=== PATIENT | male | born 1960 | race African-American/Black ===

== ENCOUNTER 2018-09-14 12:44 | Observation (INO) | payer OTHER ==
[2018-09-14] MEDS ORDERED: methylPREDNISolone NA SUCC 125 MG/2 ML VIAL IVPUSH ONE (13:14)
[2018-09-14] MEDS: ALBUTEROL SO4 2.5/IPRATROPIUM 0.5 INH SOL 3 ML VIAL.NEB. NEB SCH ×4 (13:15→14:00)
[2018-09-14 14:10] LABS: BASO % 0.4 % (0-2.0); EOS % 0.2 % (0-4.5); HEMATOCRIT 38.7 % (35.4-49); HEMOGLOBIN 12.2 GM/dL (11.7-16.9); LYMPH % 9.2 % (8-40); MCH 27.4 pg (25.7-33.7); MCHC 31.4 g/dl (32.0-35.9); MEAN PLT VOLUME 9.7 fl (7.5-11.1); MONO % 10.9 % (3.8-10.2); NEUT % 79.3 % (42.8-82.8); PLATELET COUNT 162 K/MM3 (134-434); RBC 4.45 M/mm3 (4.00-5.60); WHITE BLOOD COUNT 12.3 K/mm3 (4.0-10.0)
--- NOTE | 2018-09-14 14:14 | PDOC ---
History of Present Illness - General Chief Complaint: Shortness of Breath Stated Complaint: SOB COLD Time Seen by Provider: 09/14/18 13:02 History Source: Patient Exam Limitations: No Limitations - History of Present Illness Initial Comments: 09/14/18 13:50 Patient is a 58M with history of COPD, CHF, afib on digoxin, CKD, HLD here today complaining of weakness. He states that he's also had 1 week of cough, subjective fevers, chills, and shortness of breath. Patient is coming from an assisting living home, denies sick contacts. Endorses compliance with medications. Denies chest pain, leg swelling, prior blood clots, recent travel. States that he got his flu shot. Denies dysuria. He states that he developed epigastric abdominal pain after multiple episodes of coughing. Past History - Past Medical History Allergies/Adverse Reactions: Allergies Allergy/AdvReac Type Severity Reaction Status Date / Time No Known Allergies Allergy Verified 09/14/18 13:24 Cardiac Disorders: Yes (HF, Afib) CVA: Yes ("2yrs ago" (2016)) COPD: Yes HTN: Yes Hypercholesterolemia: Yes Psychiatric Problems: Yes (Depression) - Suicide/Smoking/Psychosocial Hx Smoking History: Former smoker Have you smoked in the past 12 months: No If you are a former smoker, when did you quit?: 2 years ago Information on smoking cessation initiated: No Hx Alcohol Use: No Drug/Substance Use Hx: No Substance Use Type: None Review of Systems - Review of Systems Comments:: 09/14/18 14:14 GENERAL/CONSTITUTIONAL: +fever +chills. +weakness. HEAD, EYES, EARS, NOSE AND THROAT: No change in vision. No sore throat. CARDIOVASCULAR: No chest pain +shortness of breath RESPIRATORY: +cough, +wheezing, no hemoptysis. GASTROINTESTINAL: No nausea, vomiting, diarrhea or constipation. GENITOURINARY: No dysuria, frequency, or change in urination. MUSCULOSKELETAL: No joint or muscle swelling or pain. No neck or back pain. SKIN: No rash NEUROLOGIC: No headache, vertigo, loss of consciousness, or change in strength/ sensation. ENDOCRINE: No increased thirst. No abnormal weight change HEMATOLOGIC/LYMPHATIC: No anemia, easy bleeding, or history of blood clots. ALLERGIC/IMMUNOLOGIC: No hives or skin allergy. *Physical Exam - Vital Signs Last Vital Signs Temp Pulse Resp BP Pulse Ox 98.5 F 80 18 145/98 98 09/14/18 13:13 09/14/18 13:13 09/14/18 13:13 09/14/18 13:13 09/14/18 13:13 - Physical Exam Comments: 09/14/18 14:16 GENERAL: Awake, alert, and fully oriented, in no acute distress HEAD: No signs of trauma, normocephalic, atraumatic EYES: PERRLA, EOMI, sclera anicteric, conjunctiva clear ENT: Auricles normal inspection, hearing grossly normal, nares patent, oropharynx clear without exudates. Moist mucosa NECK: Normal ROM, supple, no lymphadenopathy, JVD, or masses LUNGS: No distress, speaks full sentences, diffuse wheezing bilaterally HEART: Regular rate and rhythm, normal S1 and S2, no murmurs, rubs or gallops, peripheral pulses normal and equal bilaterally. ABDOMEN: Soft, nontender, normoactive bowel sounds. No guarding, no rebound. No masses EXTREMITIES: Normal inspection, Normal range of motion, no edema. No clubbing or cyanosis. NEUROLOGICAL: Cranial nerves II through XII grossly intact. Normal speech, no focal sensorimotor deficits SKIN: Warm, Dry, normal turgor, no rashes or lesions noted. ED Treatment Course - LABORATORY CBC & Chemistry Diagram: 09/14/18 14:00 09/14/18 13:12 - RADIOLOGY Radiology Studies Ordered: Category Date Time Status CHEST X-RAY PORTABLE* [RAD] Stat Radiology 09/14/18 13:13 Completed Medical Decision Making - Medical Decision Making 09/14/18 14:17 Patient is a 58M with history of COPD, CHF, HLD, CKD, afib on digoxin here today with weakness, URI symptoms. DDx includes, but is not limited to COPD exacerbation, pneumonia, CHF, digoxin level abnormalities, ACS, UTI. Will evaluate with cardiac labs, CXR, EKG, UA, dig level. CXR clear, no infiltrate or acute cardiopulmonary process. 09/14/18 14:46 EKG shows sinus rhythm with one PAC. LVH with LAFB pattern. QRS widened to 130. No st elevations/depressions. No significant t wave abnormalities. No prior EKGs available for comparison. 09/14/18 18:54 Laboratory Tests 09/14/18 09/14/18 09/14/18 13:12 14:00 15:09 WBC 12.3 H Hgb 12.2 Plt Count 162 VBG pH 7.40 POC VBG pCO2 58.7 H Mixed VBG HCO3 35.4 H Digoxin 0.71 L CBC shows small leukocytosis. VBG shows chronic respiratory issue. Digoxin 0.71 , slightly low. CTA shows no PE, shows moderate to severe COPD changes. Admitted to Dr Krystian Crook. *DC/Admit/Observation/Transfer Diagnosis at time of Disposition: COPD exacerbation - Discharge Dispostion Condition at time of disposition: Stable Decision to Admit order: Yes - Referrals - Patient Instructions - Post Discharge Activity
[2018-09-14 14:28] LABS: INR 1.08 (0.83-1.09); PROTHROMBIN TIME (PATIENT) 12.7 SEC (9.7-13.0)
[2018-09-14 14:55] LABS: ALBUMIN 3.6 g/dl (3.4-5.0); ALK PHOS 112 U/L (45-117); ANION GAP 5 MMOL/L (8-16); BILIRUBIN,TOTAL 1.1 mg/dL (0.2-1); BLOOD UREA NITROGEN 14 mg/dL (7-18); CALCIUM 9.2 mg/dL (8.5-10.1); CHLORIDE 95 mmol/L (98-107); CO2 38 mmol/L (21-32); CREATININE 1.1 mg/dL (0.55-1.3); GLUCOSE,RANDOM 104 mg/dL (74-106); MAGNESIUM 2.3 mg/dL (1.8-2.4); POTASSIUM 3.7 mmol/L (3.5-5.1); SGOT/AST 35 U/L (15-37); SGPT/ALT 28 U/L (13-61); SODIUM 138 mmol/L (136-145)
[2018-09-14] MEDS ORDERED: ALBUTEROL SO4 0.5 % INH SOLN 2.5 MG/0.5 ML VIAL.NEB. NEB ONE (15:05)
[2018-09-14] MEDS ORDERED: FAMOTIDINE 20 MG/50 ML IVPB 20 MG/50 ML MG IVPB ONE ×2 (15:15→16:22)
[2018-09-14] MEDS ORDERED: SODIUM CHLORIDE 1,000 ML IV STA (15:15)
[2018-09-14] MEDS ORDERED: ACETAMINOPHEN 1000 MG/100 ML VIAL (NON FORMULARY) IVPB ONE (15:15)
[2018-09-14 15:18] LABS: VENOUS PC02 58.7 mmHg (38-52); VENOUS PH 7.4 (7.32-7.42); VENOUS PO2 13.7 mmHg (28-48)
[2018-09-14] MEDS ORDERED: ACETAMINOPHEN INJECTION 100 ML IVPB ONE (16:22)
--- NOTE | 2018-09-14 17:53 | PDOC ---
Attending Attestation - Resident Resident Name: Mike Ellison - ED Attending Attestation I have performed the following: I have examined & evaluated the patient, The case was reviewed & discussed with the resident, I agree w/resident's findings & plan - HPI HPI: 09/14/18 17:53 Shaun Brian is a 58-year-old male from an assisted living facility, with a past medical history of COPD (3-4L of O2 at home, on steroids), CHF, afib (on digoxin ), CKA, HLD, and depression, who presents to the ED with generalized weakness today. The patient reports associated cough, shortness of breath, and epigastric /LUQ pain due to excessive coughing x 1 week. Patient is compliant with his medications. +dyspnea with mild exertion and walking small distances. The patient denies any nausea, vomiting, or diarrhea. Also on chronic steroids. Denies any chest pain or palpitations. Denies any recent travel or hx of DVTs. Allergies: NKA Social History: None reported. Surgical History: None reported. - Physicial Exam PE: 09/14/18 17:53 General: Well appearing, awake and alert, NAD. HEENT: NCAT, PERRL, EOMI, clear conjunctiva, anicteric, moist mucus membranes, clear oropharynx, no oral lesions.. Neck: neck supple, FROM Resp: (+)Decreased air entry, decreased breath sounds bilaterally, on supplemental O2. CVS: RRR, no murmurs, 2+ peripheral pulses throughout, no peripheral edema Abdomen: soft, NTND, no peritoneal signs. Back: nontender, normal inspection and ROM MSK: no edema, GARCIA x4, ROM intact. No clubbing or cyanosis. normal bulk and tone. No calf tenderness Neuro: alert, oriented appropriately; no focal neurologic deficits Skin: warm and well perfused, cap refill <2 sec, normal color - Medical Decision Making 09/14/18 17:52 Shaun Brian is a 58-year-old male from an assisted living facility, with a past medical history of COPD (3-4L of O2 at home, on steroids), CHF, afib (on digoxin ), CKA, HLD, and depression, who presents to the ED with generalized weakness, progressive AP, SOB with exertion x 1 week. DDx. digoxin toxicity, electrolyte/metabolic derangements, CHF, COPD, acute respiratory failure, ACS, arrhythmia, PE, pneumonia. Vital signs reviewed, wnl. Prior notes reviewed, including admissions, discharges and consultations. laboratory results and imaging reviewed, basic labs and lytes wnl, notable for leukocytosis 12.3K, however on steroids. Digoxin level therapeutic range. CO2 retention >58, but normal pH so likely chronic retainer. Dimer elevated, will need CTA to r/o PE as alternative etiology for sob. neg for PE, copd changes present. CXR_unremarkable, no intra thoracic disease Cardiac panel_neg trop/ck. EKG normal sinus rhythm, no interval abnormalities, narrow QRS, ST and T wave segments and morphology normal. Nonspecific T wave abnormalities, PAC with left axis deviation ED course: no acute events, remained stable and well appearing. Clinically improved after interventions, including duonebs, solumedrol and IVF/tylenol, pepcid for GI cocktail and epigastric pain Dispo: Admit for copd exacerbation. Discussed results and management plan with pt and family member at bedside, agree with impression and plan 09/14/18 17:52 09/20/18 19:16
--- NOTE | 2018-09-14 18:43 | HP ---
CHIEF COMPLAINT: SOB and cough PCP:[facility] HISTORY OF PRESENT ILLNESS: 58 year old male with hx of COPD and emphysema presented with one week history of common cold , nasal congestion and productive cough of yellow sputum , small cup in amount . pt felt weak today and not able to do his daily activity he used o2 at home with 2 -3 at rest and 4 l on walking. pt denies nay fe tracee, chills, N/V/D/C, denies nay chest pain , palpitation , headache , blurry vision. denies any urinary symptoms. or joint/back pain . ER course was notable for: (1)NS (2)CBC, CMP (3)Duo-neb , O2 , Prednisone , CTA , CXR Recent Travel:denies PAST MEDICAL HISTORY: Stroke in 2016 PAST SURGICAL HISTORY: Denies Social History: Smoking: Quit in 2016 ,previous 30 PPD Alcohol:socially Drugs: denies Family History: Allergies No Known Allergies Allergy (Verified 09/14/18 13:24) HOME MEDICATIONS: REVIEW OF SYSTEMS couph, SOB , Mid epigastric tenderness PHYSICAL EXAMINATION Vital Signs - 24 hr 09/14/18 09/14/18 12:55 13:13 Temperature 98.5 F Pulse Rate 80 Respiratory 18 Rate Blood Pressure 145/98 O2 Sat by Pulse 99 98 Oximetry (%) GENERAL: AAOx3 in NAD, on 3 L oxygen HEAD: NC/AT, poor dentation EYES: EOMI, Conjunctiva clear, sclera anicteric ENT: moist mucous membrane NECK: Supple, no JVD LUNGS: CTA B/L, no crackles no wheezing no accessory muscle use.(improved with treatment ) HEART: RRR, NSR, normal s1, s2, murmur no M/R/G ABDOMEN: Soft, ND, Mid epigastric tenderness, +BS 4 Q, no CVA Tenderness LOWER EXTREMITIES: no edema, +2DP pulse, NEUROLOGICAL: No focal deficit. Normal speech. gait not observed. PSYCHIATRIC: Cooperative. Good eye contact. Appropriate mood and affect. SKIN: Warm, dry, Laboratory Results - last 24 hr 09/14/18 09/14/18 09/14/18 13:12 14:00 14:00 WBC 12.3 H RBC 4.45 Hgb 12.2 Hct 38.7 MCV 87.0 MCH 27.4 MCHC 31.4 L RDW 15.0 Plt Count 162 MPV 9.7 Absolute Neuts (auto) 9.7 H Neutrophils % 79.3 Lymphocytes % 9.2 Monocytes % 10.9 H Eosinophils % 0.2 Basophils % 0.4 Nucleated RBC % 0 PT with INR 12.70 INR 1.08 D-Dimer VBG pH POC VBG pCO2 POC VBG pO2 Mixed VBG HCO3 Sodium 138 Potassium 3.7 Chloride 95 L Carbon Dioxide 38 H Anion Gap 5 L BUN 14 Creatinine 1.1 Creat Clearance w eGFR > 60 Random Glucose 104 Calcium 9.2 Magnesium 2.3 Total Bilirubin 1.1 H AST 35 ALT 28 Alkaline Phosphatase 112 Creatine Kinase 376 H Creatine Kinase Index 0.7 CK-MB (CK-2) 2.8 Troponin I 0.04 Total Protein 7.0 Albumin 3.6 Digoxin 0.71 L 09/14/18 09/14/18 15:05 15:09 WBC RBC Hgb Hct MCV MCH MCHC RDW Plt Count MPV Absolute Neuts (auto) Neutrophils % Lymphocytes % Monocytes % Eosinophils % Basophils % Nucleated RBC % PT with INR INR D-Dimer 1340 H VBG pH 7.40 POC VBG pCO2 58.7 H POC VBG pO2 13.7 L* Mixed VBG HCO3 35.4 H Sodium Potassium Chloride Carbon Dioxide Anion Gap BUN Creatinine Creat Clearance w eGFR Random Glucose Calcium Magnesium Total Bilirubin AST ALT Alkaline Phosphatase Creatine Kinase Creatine Kinase Index CK-MB (CK-2) Troponin I Total Protein Albumin Digoxin CBC, BMP 09/14/18 14:00 09/14/18 13:12 ASSESSMENT/PLAN: 58 year old male with hx of copd and emphysema presented from [facility] due to one week of common cold and worsening sob and productive cough , was admitted to obs services for copd exacerbation. # COPD exacerbation acute on chronic * worsening cough with white yellow phlegm , dyspnea on exertion * CXR with no acute pathology * CTA done in ED negative for PE * duoneb Q 6 hr * Albuterol Q 4 hr * Prednisone 60 mg po daily for 5 days * Azithromax 500 mg po X3 days * Cont o2 3 L * if improved in AM possible for DC # FEN * F: 1 L NS * E: Monitor * N: regular diet # Proph * DVTS: Hep SQ TID * GI: pepcid # Dispo: Admit to obs Note :Day team please verify his home meds Visit type - Emergency Visit Emergency Visit: Yes ED Registration Date: 09/14/18 Care time: The patient presented to the Emergency Department on the above date and was hospitalized for further evaluation of their emergent condition. - New Patient This patient is new to me today: Yes Date on this admission: 09/14/18 - Critical Care Critical Care patient: No
[2018-09-14] MEDS ORDERED: ALBUTEROL SO4 0.5 % INH SOLN 2.5 MG/0.5 ML VIAL.NEB. NEB PRN (20:02)
--- NOTE | 2018-09-14 20:31 | PN ---
Teaching Attending Note Name of Resident: Opla Mustafa ATTENDING PHYSICIAN STATEMENT I saw and evaluated the patient. I reviewed the resident's note and discussed the case with the resident. I agree with the resident's findings and plan as documented. SUBJECTIVE: Patient seen and examined; he has a stated PMH of CVA for which he was seen at [facility] with no residual deficits, COPD with profound history of former smoking follows with pulmonary medicine. No recent PFTs, no recent exacerbations. He has GOLD+ COPD exacerbation with SOB on exertion with less functional status for 1 day due to dyspnea; he has thicker sputum as well and a more frequent cough. On baseline ~3L and he is using that now via NC. He is symptomatically improved after tx in the ER. Doesn't smoke anymore due to concern after stroke. He is on PRN albuterol and Symbicort at home. Last recent to pulmonary was 2 weeks ago without any med changes. He initially complained of some epigastric pain that had since resolved. PMH: COPD, stated CVA PSH: No recent procedures, no cardiopulmonary procedures Social: Former smoker, no EtOH FH: Asked and noncontributory OBJECTIVE: VSS, labs reviewed NAD, AAO, resting in bed on 3L via NC RRR s1/2 no mgr Lungs CTAB with minimal if any wheezes, sym expansion, prolonged expiratory phase NT ND +BS EKG with NSR and L-axis deviation and occasional PAC ASSESSMENT AND PLAN: 1) COPD exacerbation -+by GOLD criteria; staging of COPD unknown. -On baseline O2; admit to obs, PO Pred burst x5 days, ATC duonebs, PRN albuterol -Azithro x5 days; being done due to LLL lung changes. I don't think that they represent a PNA in the abscence of a true WBC count (only mildly elevated) and no fever or systemic sx. Can broaden if a true PNA becomes evident. 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 2) Former history of CVA -Consider discharging on ASA for secondary prevention -No residual deficits 3) Former Smoker -Outpatient followup for AAA screening and lung cancer screening. FENA -PO fluids -Monitor and replete PRN -Regular Diet -As tolerated Full Code Anticipate DC in <24 hours
[2018-09-14] MEDS ORDERED: AZITHROMYCIN 250 MG TABLET ONE (22:50)
[2018-09-14] MEDS: AZITHROMYCIN 250 MG TABLET PO SCH (22:54)
[2018-09-14 22:55] LABS: PH,URINE 6.5 (5.0-8.0); URINE APPEARANCE Clear; URINE BILIRUBIN Negative (<2.0 mg/dL); URINE COLOR Yellow; URINE GLUCOSE (UA) Negative (NEGATIVE); URINE KETONE Negative (NEGATIVE); URINE LEUK ESTERASE Negative (NEGATIVE); URINE NITRITE Negative (NEGATIVE); URINE PROTEIN 1+ (NEGATIVE)
[2018-09-14 23:05] LABS: EPI CELLS RARE /HPF (FEW)
[2018-09-15] MEDS ORDERED: HEPARIN NA (PORCINE) 5,000 UNITS/ML 1ML VIAL ONE (06:08)
[2018-09-15] MEDS: HEPARIN NA (PORCINE) 5,000 UNITS/ML 1ML VIAL SQ SCH ×3 (06:37→22:54)
[2018-09-15 07:45] LABS: BASO % 0.1 % (0-2.0); HEMATOCRIT 39.3 % (35.4-49); HEMOGLOBIN 12.3 GM/dL (11.7-16.9); LYMPH % 3.9 % (8-40); MCH 27.2 pg (25.7-33.7); MCHC 31.4 g/dl (32.0-35.9); MEAN CELL VOLUME 86.6 fl (80-96); MEAN PLT VOLUME 9.6 fl (7.5-11.1); MONO % 4.9 % (3.8-10.2); NEUT % 91.1 % (42.8-82.8); PLATELET COUNT 175 K/MM3 (134-434); RBC 4.54 M/mm3 (4.00-5.60); RDW 14.9 % (11.9-15.9); WHITE BLOOD COUNT 11.9 K/mm3 (4.0-10.0)
[2018-09-15 08:13] LABS: ANION GAP 7 MMOL/L (8-16); BLOOD UREA NITROGEN 18 mg/dL (7-18); CHLORIDE 98 mmol/L (98-107); CO2 34 mmol/L (21-32); GLUCOSE,RANDOM 106 mg/dL (74-106); MAGNESIUM 2.4 mg/dL (1.8-2.4); PHOSPHOROUS 3.8 mg/dL (2.5-4.9); POTASSIUM 4.1 mmol/L (3.5-5.1); SODIUM 138 mmol/L (136-145)
[2018-09-15 10:09] LABS: ACANTHOCYTES 0; ANISOCYTOSIS 0; HELMET CELLS 0; HOWELL-JOLLY BODIES 0; MACROCYTOSIS 0; OVALOCYTE 0; PLATELET ESTIMATE NORMAL; ROULEAU 0; SICKELED CELLS 0; TARGET CELLS 0; TEAR DROP CELLS 0; TOXIC GRANULATION 0
[2018-09-15] MEDS: predniSONE 20 MG TABLET (UD) PO SCH (10:16)
[2018-09-15] MEDS: AZITHROMYCIN 250 MG TABLET PO SCH (10:16)
[2018-09-15] MEDS: ALBUTEROL SO4 2.5/IPRATROPIUM 0.5 INH SOL 3 ML VIAL.NEB. NEB PRN (11:00)
--- NOTE | 2018-09-15 11:27 | EKG ---
Test Reason : Blood Pressure : / mmHG Vent. Rate : 088 BPM Atrial Rate : 088 BPM P-R Int : 162 ms QRS Dur : 130 ms QT Int : 380 ms P-R-T Axes : 076 -62 091 degrees QTc Int : 459 ms SINUS RHYTHM WITH PREMATURE ATRIAL COMPLEXES LEFT AXIS DEVIATION LEFT VENTRICULAR HYPERTROPHY WITH QRS WIDENING AND REPOLARIZATION ABNORMALITY CANNOT RULE OUT SEPTAL INFARCT , AGE UNDETERMINED ABNORMAL ECG NO PREVIOUS ECGS AVAILABLE Confirmed by GISELLE MARTINI, LIZZIE ([id number]) on 09/15/2018 11:26:39 AM Referred By: Confirmed By:LIZZIE DESAI MD
--- NOTE | 2018-09-15 17:22 | PN ---
Teaching Attending Note Name of Resident: Eben Norton ATTENDING PHYSICIAN STATEMENT I saw and evaluated the patient. I reviewed the resident's note and discussed the case with the resident. I agree with the resident's findings and plan as documented. SUBJECTIVE:breathing is somewhat improved. states he has not ambulated and unable to discern if hes able to walk without difficulty. denies CP, SOB, fever , chills, N/V/C/D OBJECTIVE: Last Vital Signs Temp Pulse Resp BP Pulse Ox 98.2 F 103 H 18 123/79 97 09/15/18 15:00 09/15/18 15:00 09/15/18 15:00 09/15/18 15:00 09/15/18 10:10 General NAD CV S1 S2 + Lungs diffuse expiratory wheezing, good inspiratory effort abdomen soft NT/ND ASSESSMENT AND PLAN: 58yo M with PMH CVA with no deficits, CHF, afib, CKD, COPD on 3L home O2 presented to the Er wtih SOB x1 day assoc iwth productive cough and found to have acute COPD exacerbation 1. Acute COPD exacerbation. currently 97% on 2L NC. states he is better but does not feel at baseline yet. was given solumedrol 125mg in the ER and now currently on pred 60mg po. will cont current dosing. cont azithromycin day 2. will re-start home inhalers. cont nebs 2. CHF- no signs of overload. cont home medications 3. AFib on digoxin- unclear why he is not on anticoagulation. will need to verify. cont home medications 4. CVA- unclear not on antiplatelet agent 5. DVT ppx- hep sq 6. anticipate discharge in next 24H
[2018-09-15 18:14] VITALS: BMI 20.6
--- NOTE | 2018-09-15 20:42 | PN ---
Physical Exam: SUBJECTIVE: Patient seen and examined at bedside. No acute events overnight. Endorses nausea and abdominal discomfort this AM. States he felt dizzy as well this am. OBJECTIVE: Vital Signs Period Temp Pulse Resp BP Sys/Goode Pulse Ox Last 24 Hr 97.8 F-98.2 F 103-110 18-20 123-151/79-100 96-97 GENERAL: AAOx3, NAD HEAD: NC/AT EYES: PERRLA EOMI ENT: MMM NECK: No accessory muscle use. LUNGS: Right lung field expiratory wheezing HEART: Regular rate and rhythm, S1, S2 without murmur, rub or gallop. ABDOMEN: ND NT No HSM. EXTREMITIES: No CCE NEUROLOGICAL: Cranial nerves II through XII grossly intact. PSYCH: Normal mood, normal affect. SKIN: No rahses or lesions appreciated Laboratory Results - last 24 hr 09/14/18 09/14/18 09/14/18 12:43 21:28 22:00 WBC RBC Hgb Hct MCV MCH MCHC RDW Plt Count MPV Absolute Neuts (auto) Neutrophils % Neutrophils % (Manual) Band Neutrophils % Lymphocytes % Lymphocytes % (Manual) Monocytes % Monocytes % (Manual) Eosinophils % Eosinophils % (Manual) Basophils % Basophils % (Manual) Myelocytes % (Man) Promyelocytes % (Man) Blast Cells % (Manual) Nucleated RBC % Metamyelocytes Hypochromia Toxic Granulation Dohle Bodies Platelet Estimate Polychromasia Poikilocytosis Basophilic Stippling Anisocytosis Microcytosis Macrocytosis Spherocytes Sickle Cells Target Cells Tear Drop Cells Ovalocytes Stomatocytes Helmet Cells [place] Bodies [place] Rings Que Cells Acanthocytes (Spur) Rouleaux Fragmented RBCs Schistocytes Sodium Potassium Chloride Carbon Dioxide Anion Gap BUN Creatinine Creat Clearance w eGFR Random Glucose Calcium Phosphorus Magnesium Creatine Kinase 345 H Creatine Kinase Index 0.8 CK-MB (CK-2) 3.0 Lipase 57 L Urine Color Yellow Urine Appearance Clear Urine pH 6.5 Ur Specific [place] <= 1.005 L Urine Protein 1+ H Urine Glucose (UA) Negative Urine Ketones Negative Urine Blood 1+ H Urine Nitrite Negative Urine Bilirubin Negative Urine Urobilinogen 1.0 Ur Leukocyte Esterase Negative Urine WBC (Auto) 1 Urine RBC (Auto) 1 Ur Epithelial Cells Rare 09/15/18 09/15/18 07:00 07:00 WBC 11.9 H RBC 4.54 Hgb 12.3 Hct 39.3 MCV 86.6 MCH 27.2 MCHC 31.4 L RDW 14.9 Plt Count 175 MPV 9.6 Absolute Neuts (auto) 10.9 H Neutrophils % 91.1 H Neutrophils % (Manual) 86.9 H Band Neutrophils % 1.0 Lymphocytes % 3.9 L D Lymphocytes % (Manual) 6.0 L Monocytes % 4.9 Monocytes % (Manual) 6 Eosinophils % 0.0 D Eosinophils % (Manual) 0.0 Basophils % 0.1 Basophils % (Manual) 0.0 Myelocytes % (Man) 0 Promyelocytes % (Man) 0 Blast Cells % (Manual) 0 Nucleated RBC % 0 Metamyelocytes 0 Hypochromia 0 Toxic Granulation 0 Dohle Bodies 0 Platelet Estimate Normal Polychromasia 0 Poikilocytosis 0 Basophilic Stippling 0 Anisocytosis 0 Microcytosis 0 Macrocytosis 0 Spherocytes 0 Sickle Cells 0 Target Cells 0 Tear Drop Cells 0 Ovalocytes 0 Stomatocytes 0 Helmet Cells 0 [place] Bodies 0 [place] Rings 0 [place] Cells 0 Acanthocytes (Spur) 0 Rouleaux 0 Fragmented RBCs 0 Schistocytes 0 Sodium 138 Potassium 4.1 Chloride 98 Carbon Dioxide 34 H Anion Gap 7 L BUN 18 Creatinine 1.0 Creat Clearance w eGFR > 60 Random Glucose 106 Calcium 9.0 Phosphorus 3.8 Magnesium 2.4 Creatine Kinase Creatine Kinase Index CK-MB (CK-2) Lipase Urine Color Urine Appearance Urine pH Ur Specific [place] Urine Protein Urine Glucose (UA) Urine Ketones Urine Blood Urine Nitrite Urine Bilirubin Urine Urobilinogen Ur Leukocyte Esterase Urine WBC (Auto) Urine RBC (Auto) Ur Epithelial Cells Active Medications Generic Name Dose Route Start Last Admin Trade Name Freq PRN Reason Stop Dose Admin Albuterol Sulfate 1 amp 09/14/18 20:02 Ventolin 0.5% - NEB Q4H PRN SHORT OF BREATH/WHEEZING Albuterol/Ipratropium 1 amp 09/14/18 20:00 09/15/18 11:00 Duoneb - NEB 1 amp Q6H PRN Administration SHORTNESS OF BREATH Azithromycin 500 mg 09/14/18 20:15 09/15/18 10:16 Zithromax - PO 09/17/18 20:14 500 mg DAILY WAQAR Administration Budesonide/Formoterol Fumarate 2 puff 09/15/18 22:00 Symbicort 160/4.5mcg - IH BID WAQAR Heparin Sodium (Porcine) 5,000 unit 09/15/18 06:00 09/15/18 14:45 Heparin - SQ 5,000 unit TID WAQAR Administration Prednisone 60 mg 09/15/18 10:00 09/15/18 10:16 Deltasone - PO 60 mg DAILY WAQAR Administration ASSESSMENT/PLAN: 58 year old male with hx of COPD, CHF, AFIB (on digoxin), HLD, depression and emphysema presented from [facility] due to one week of common cold and worsening sob and productive cough. # COPD exacerbation acute on chronic * worsening cough with white yellow phlegm, dyspnea on exertion * CXR with no acute pathology * CTA done in ED negative for PE * Duoneb Q 6 hr * Albuterol Q 4 hr * Prednisone 60 mg po daily for 5 days. Was given solumedrol 125mg in the ER. * Azithromax 500 mg po X3 days. On day 2. * 2L NC O2 #CHF Resume home medications. will reconcile in am #AFIB Resume Home medications will reconcile in am # FEN No Fluids Monitor Electrolytes Regular Diet #DVT ppx Hep SQ TID # Dispo: Discharge in am Visit type - Emergency Visit Emergency Visit: Yes ED Registration Date: 09/14/18 Care time: The patient presented to the Emergency Department on the above date and was hospitalized for further evaluation of their emergent condition. - New Patient This patient is new to me today: Yes Date on this admission: 09/15/18 - Critical Care Critical Care patient: No - Discharge Referral Referred to [facility] No
[2018-09-15] MEDS: BUDESONIDE/FORMETEROL FUMARATE 160/4.5 mcg INHALER IH SCH (22:53)
[2018-09-16] MEDS: HEPARIN NA (PORCINE) 5,000 UNITS/ML 1ML VIAL SQ SCH (06:22)
[2018-09-16] MEDS: ALBUTEROL SO4 2.5/IPRATROPIUM 0.5 INH SOL 3 ML VIAL.NEB. NEB PRN ×2 (06:57→15:16)
[2018-09-16] MEDS ORDERED: ACETAMINOPHEN 325 MG TABLET (FP) PO PRN (07:00)
[2018-09-16] MEDS ORDERED: ALBUTEROL SO4 8 GM HFA INHALER IH PRN (07:00)
[2018-09-16] MEDS ORDERED: OXYMETAZOLINE 0.05% NASAL SOLUTION 15 ML BOTTLE NS PRN (07:00)
[2018-09-16 07:01] LABS: HEMOGLOBIN 11.5 GM/dL (11.7-16.9); MCHC 30.9 g/dl (32.0-35.9); MEAN CELL VOLUME 87.4 fl (80-96); MEAN PLT VOLUME 9.7 fl (7.5-11.1); PLATELET COUNT 164 K/MM3 (134-434); RBC 4.24 M/mm3 (4.00-5.60); RDW 14.8 % (11.9-15.9); WHITE BLOOD COUNT 11.5 K/mm3 (4.0-10.0)
[2018-09-16 07:20] LABS: ANION GAP 7 MMOL/L (8-16); BLOOD UREA NITROGEN 22 mg/dL (7-18); CALCIUM 8.6 mg/dL (8.5-10.1); CHLORIDE 99 mmol/L (98-107); CO2 36 mmol/L (21-32); CREATININE 0.9 mg/dL (0.55-1.3); GLUCOSE,RANDOM 91 mg/dL (74-106); POTASSIUM 4.5 mmol/L (3.5-5.1); SODIUM 142 mmol/L (136-145)
--- NOTE | 2018-09-16 10:28 | PN ---
Physical Exam: SUBJECTIVE: Patient seen and examined at bedside. States he is feeling short of breath and having decreased energy. Received nebulizer treatment this am. OBJECTIVE: Vital Signs Period Temp Pulse Resp BP Sys/Goode Pulse Ox Last 24 Hr 97.5 F-98.2 F 78-110 18-20 123-151/79-105 96-97 GENERAL: NAD AAOx3 HEAD: Normal with no signs of trauma. EYES: PERRLA EOMI ENT: MMM. NECK: Trachea midline, full range of motion, supple. LUNGS: Expiratory wheezing HEART: RRR No MRG S1S2 ABDOMEN: ND NT No HSM EXTREMITIES: No CCE. NEUROLOGICAL: CN2-12 intact PSYCH: Normal mood, normal affect. SKIN: No rashes or lesions appreciated Laboratory Results - last 24 hr 09/15/18 09/16/18 09/16/18 07:00 06:25 06:25 WBC 11.5 H RBC 4.24 Hgb 11.5 L Hct 37.0 MCV 87.4 MCH 27.0 MCHC 30.9 L RDW 14.8 Plt Count 164 MPV 9.7 Neutrophils % (Manual) 86.9 H Band Neutrophils % 1.0 Lymphocytes % (Manual) 6.0 L Monocytes % (Manual) 6 Eosinophils % (Manual) 0.0 Basophils % (Manual) 0.0 Myelocytes % (Man) 0 Promyelocytes % (Man) 0 Blast Cells % (Manual) 0 Metamyelocytes 0 Hypochromia 0 Toxic Granulation 0 Dohle Bodies 0 Platelet Estimate Normal Polychromasia 0 Poikilocytosis 0 Basophilic Stippling 0 Anisocytosis 0 Microcytosis 0 Macrocytosis 0 Spherocytes 0 Sickle Cells 0 Target Cells 0 Tear Drop Cells 0 Ovalocytes 0 Stomatocytes 0 Helmet Cells 0 [place] Bodies 0 [place] Rings 0 [place] Cells 0 Acanthocytes (Spur) 0 Rouleaux 0 Fragmented RBCs 0 Schistocytes 0 Sodium 142 Potassium 4.5 Chloride 99 Carbon Dioxide 36 H Anion Gap 7 L BUN 22 H Creatinine 0.9 Creat Clearance w eGFR > 60 Random Glucose 91 Calcium 8.6 Active Medications Generic Name Dose Route Start Last Admin Trade Name Freq PRN Reason Stop Dose Admin Acetaminophen 650 mg 09/16/18 07:00 Tylenol - PO Q6H PRN PAIN Albuterol Sulfate 1 amp 09/14/18 20:02 Ventolin 0.5% - NEB Q4H PRN SHORT OF BREATH/WHEEZING Albuterol Sulfate 2 puff 09/16/18 07:00 Ventolin Hfa Inhaler - IH Q4H PRN SHORTNESS OF BREATH Albuterol/Ipratropium 1 amp 09/16/18 07:00 Duoneb - NEB QID PRN SHORTNESS OF BREATH Atorvastatin Calcium 20 mg 09/16/18 22:00 Lipitor - PO HS [facility] Azithromycin 500 mg 09/14/18 20:15 09/15/18 10:16 Zithromax - PO 09/17/18 20:14 500 mg DAILY [facility] Administration Budesonide/Formoterol Fumarate 2 puff 09/15/18 22:00 09/15/18 22:53 Symbicort 160/4.5mcg - IH Not Given BID [facility] Cyanocobalamin 1,000 mcg 09/16/18 10:30 Vitamin B12 Injection - IM MONTHLY [facility] Diltiazem HCl 120 mg 09/16/18 10:30 Cardizem - PO DAILY [facility] Fludrocortisone Acetate 0.1 mg 09/16/18 10:30 Florinef - PO DAILY [facility] Furosemide mg 09/16/18 10:30 Lasix - PO DAILY [facility] Heparin Sodium (Porcine) 5,000 unit 09/15/18 06:00 09/16/18 06:22 Heparin - SQ 5,000 unit TID [facility] Administration Loratadine 10 mg 09/16/18 10:00 Claritin - PO DAILY [facility] Non-Formulary Medication 100 mg 09/16/18 14:00 Benzonatate PO TID [facility] Non-Formulary Medication 62.5 mcg 09/16/18 10:30 Digoxin [Lanoxin] PO DAILY [facility] Non-Formulary Medication 325 mg 09/16/18 10:30 Ferrous Sulfate [Ferrous Sulfate] PO DAILY [facility] Non-Formulary Medication 7.5 mg 09/16/18 22:00 Mirtazapine [Mirtazapine] PO HS [facility] Oxymetazoline HCl 2 spray 09/16/18 07:00 Afrin - NS BID PRN [facility] [employer] Pantoprazole Sodium 20 mg 09/16/18 10:00 Protonix - PO DAILY [facility] Prednisone 60 mg 09/15/18 10:00 09/15/18 10:16 Deltasone - PO 60 mg DAILY [facility] Administration ASSESSMENT/PLAN: 58 year old male with hx of COPD, CHF, AFIB (on digoxin), HLD, depression and emphysema presented from [facility] due to one week of common cold and worsening sob and productive cough. # COPD exacerbation acute on chronic * CXR with no acute pathology * CTA done in ED negative for PE * Duoneb Q 6 hr * Albuterol Q 4 hr * Prednisone 60 mg po daily for 5 days. Was given solumedrol 125mg in the ER. * Azithromax 500 mg po X3 days. On day 3. * 2L NC O2 #CHF -Resume Furosemide 20 mg po daily #AFIB -Continue on home Digoxin 62.5 mcg. -Pt currently no on any AC. CHADS2 score--> 4. Should be on AC. Endorses he was hospitalized at [facility] in past and was noted to have hemoptysis and this is why his AC was stopped. Consider restarting an AC agent. -Called [facility]. Pt was hospitalized at [facility] in February of this year for pneumonia. During admission, pt began to experience dark/tarry stool and a stool occult was positive at that time. Hemoglobin dropped from 9.1 on admission to 6.9. Pt was also coughing up blood. Pt's Xarelto was thus discontinued. However, in light of pt's stable h/H currently and risk factors including afib, chf, and previous history of stroke, we will restart pt on Xarelto 20 mg po daily. #CVA November 2016 - Lipitor 20 mg HS - Cardizem 120 mg po daily-Extended release # FEN No Fluids Monitor Electrolytes Regular Diet #DVT ppx Xarelto PO 20mg Daily # Dispo: possible discharge today Visit type - Emergency Visit Emergency Visit: Yes ED Registration Date: 09/14/18 Care time: The patient presented to the Emergency Department on the above date and was hospitalized for further evaluation of their emergent condition. - New Patient This patient is new to me today: No - Critical Care Critical Care patient: No - Discharge Referral Referred to [facility]C.: No
[2018-09-16] MEDS ORDERED: CYANOCOBALAMIN (VITAMIN B-12) 1000 MCG/1 ML VIAL IM SCH (10:30)
[2018-09-16] MEDS ORDERED: dilTIAZem HCL 60 MG TABLET (FP) PO SCH (10:30)
[2018-09-16] MEDS: AZITHROMYCIN 250 MG TABLET PO SCH (10:33)
[2018-09-16] MEDS: PANTOPRAZOLE 20 MG TABLET (FP) PO SCH (10:33)
[2018-09-16] MEDS: predniSONE 20 MG TABLET (UD) PO SCH (10:33)
[2018-09-16] MEDS: LORATADINE 10 MG TABLET PO SCH (10:33)
[2018-09-16] MEDS: BUDESONIDE/FORMETEROL FUMARATE 160/4.5 mcg INHALER IH SCH ×2 (10:45→21:00)
[2018-09-16] MEDS: DIGOXIN 0.125 MG TABLET (FP) PO SCH (11:50)
[2018-09-16] MEDS: FUROSEMIDE 20 MG TABLET (FP) PO SCH (11:51)
[2018-09-16] MEDS: FERROUS SO4 325 MG TABLET (FP) PO SCH (11:51)
[2018-09-16] MEDS: FLUDROCORTISONE ACETATE 0.1 MG TABLET (FP) PO SCH (12:01)
[2018-09-16] MEDS: guaiFENesin/D-M SUGAR-FREE/ACLHOL-FREE 118 ML BOTTLE PO PRN (12:01)
--- NOTE | 2018-09-16 12:06 | PN ---
Teaching Attending Note Name of Resident: Eben Norton ATTENDING PHYSICIAN STATEMENT I saw and evaluated the patient. I reviewed the resident's note and discussed the case with the resident. I agree with the resident's findings and plan as documented. SUBJECTIVE:continues to have cough with minimal white sputum. no hemoptysis or melena. breathing is stable. denies CP, SOB, fever, chills, N/V/C/D OBJECTIVE: Last Vital Signs Temp Pulse Resp BP Pulse Ox 97.5 F L 96 H 18 140/84 97 09/16/18 02:00 09/16/18 11:50 09/16/18 06:00 09/16/18 02:00 09/16/18 06:00 General NAD Lungs mild expiratory wheezing, good inspiratory effort ASSESSMENT AND PLAN: 58yo M with PMH CVA with no deficits, CHF, afib, CKD, COPD on 3L home O2 presented to the Er wtih SOB x1 day assoc iwth productive cough and found to have acute COPD exacerbation 1. Acute COPD exacerbation- currently 97% on 2L NC. breathing appears to be improved. ambulating without difficulty. will cont prednisone 60mg daily with decrease by 10mg every 2 days. cont nebs and inhalers. will need to f/u with private retirement plan counselor at the [facility] as outpatient 2. CHF- no signs of overload. cont home medications 3. AFib on digoxin- obtained records from February 2018 when he was hospitalized for melena and hemoptysis. was on Xarleto. which was held. EGD was done which was negative for Gi source of bleeding. pt stated he was supposed to re-started on medications but never did. Hgb is stable here and no longer having bleeding. will re-start xarelto due to high FEZDH2Cmic of 4. and strongly encouraged to follow up with green marketing specialist or PMD by Thursday the latest. should be on PPI while on steroids and NOAC 4. CVA- asa was also held during recent hospital stay. would cont to hold this time and f/u with PMD about re-starting 5. DVT ppx- hep sq 6. d/c home
[2018-09-16] MEDS ORDERED: PATIENT'S OWN MEDICATION (NON-FORMULARY) (Benzonatate 100 MG) PO SCH (14:00)
[2018-09-16] MEDS ORDERED: methylPREDNISolone NA SUCC 40 MG/1 ML VIAL IVPUSH ONE (16:49)
[2018-09-16] MEDS ORDERED: RIVAROXABAN 20 MG TABLET PO SCH (18:00)
[2018-09-16] MEDS ORDERED: ATORVASTATIN CA 20 MG TABLET (FP) PO SCH (22:00)
[2018-09-16] MEDS ORDERED: MIRTAZAPINE 15 MG TABLET (FP) PO SCH (22:00)
[2018-09-16] MEDS ORDERED: PT OWN MED DRAWER 7, Y5N ONE (22:23)
[2018-09-17] MEDS ORDERED: PT OWN MED DRAWER 7, Y5N ONE (06:47)
[2018-09-17] MEDS: guaiFENesin/D-M SUGAR-FREE/ACLHOL-FREE 118 ML BOTTLE PO PRN (06:48)
[2018-09-17] MEDS: ALBUTEROL SO4 2.5/IPRATROPIUM 0.5 INH SOL 3 ML VIAL.NEB. NEB PRN ×2 (08:51→15:14)
[2018-09-17] MEDS: FERROUS SO4 325 MG TABLET (FP) PO SCH (10:02)
[2018-09-17] MEDS: predniSONE 20 MG TABLET (UD) PO SCH (10:02)
[2018-09-17] MEDS: DIGOXIN 0.125 MG TABLET (FP) PO SCH (10:02)
[2018-09-17] MEDS: PANTOPRAZOLE 20 MG TABLET (FP) PO SCH (10:03)
[2018-09-17] MEDS: LORATADINE 10 MG TABLET PO SCH (10:03)
[2018-09-17] MEDS: FUROSEMIDE 20 MG TABLET (FP) PO SCH (10:03)
[2018-09-17] MEDS: FLUDROCORTISONE ACETATE 0.1 MG TABLET (FP) PO SCH (10:04)
[2018-09-17] MEDS: AZITHROMYCIN 250 MG TABLET PO SCH (10:04)
[2018-09-17] MEDS: BUDESONIDE/FORMETEROL FUMARATE 160/4.5 mcg INHALER IH SCH (10:05)
[2018-09-17 10:06] VITALS: PULSE 88
--- NOTE | 2018-09-17 14:51 | DS ---
Physical Exam: SUBJECTIVE: Patient seen and examined OBJECTIVE: Vital Signs Period Temp Pulse Resp BP Sys/Goode Pulse Ox Last 24 Hr 97.9 F-98.3 F 71-108 19-20 127-141/78-91 96-99 PHYSICAL EXAM GENERAL: The patient is awake, alert, and fully oriented, in no acute distress. HEAD: Normal with no signs of trauma. EYES: PERRL, extraocular movements intact, sclera anicteric, conjunctiva clear. ENT: Ears normal, nares patent, oropharynx clear without exudates, moist mucous membranes. NECK: Trachea midline, full range of motion, supple. LUNGS: Breath sounds equal, clear to auscultation bilaterally, no wheezes, no crackles, no accessory muscle use. HEART: Regular rate and rhythm, S1, S2 without murmur, rub or gallop. ABDOMEN: Soft, nontender, nondistended, normoactive bowel sounds, no guarding, no rebound, no hepatosplenomegaly, no masses. EXTREMITIES: 2+ pulses, warm, well-perfused, no edema. NEUROLOGICAL: Cranial nerves II through XII grossly intact. Normal speech, gait not observed. PSYCH: Normal mood, normal affect. SKIN: Warm, dry, normal turgor, no rashes or lesions noted. LABS HOSPITAL COURSE: Date of Admission:09/14/18 Date of Discharge: 09/17/18 Discharge Summary Reason For Visit: COPD Current Active Problems COPD exacerbation (Acute) Condition: Improved - Instructions Diet, Activity, Other Instructions: You were admitted to the hospital for COPD exacerbation likely brought upon by the cold virus you experienced earlier this week. You were given a course of steroids in the hospital, which we would like you to continue at home. #Medical Recommendations -Please take the medication Prednisone 60mg for another 3 days starting tomorrow (we will give you 20mg tablets, take 3 of these once a day for 3 days). -We will prescribe you a Z-pack, an antibiotic that you should take for 5 days -Please continue to use your oxygen as directed before -Please continue the rest of your inhalers as directed by your primary care physician If you experience severe shortness of breath, fevers, chills, nausea, vomiting , diarrhea or chest pain, please return to the hospital immediately. Disposition: HOME - Home Medications Comprehensive Discharge Medication List: Ambulatory Orders Acetaminophen 650 mg PO Q6H PRN 09/15/18 Albuterol 2.5/Ipratropium 0.5 [Duoneb -] 1 amp NEB QID PRN 09/15/18 Albuterol Sulfate Inhaler - [Ventolin HFA Inhaler -] 2 inh IH Q4H PRN 09/15/18 Azithromycin 500 mg PO DAILY #5 tablet 09/15/18 Benzonatate [Tessalon Pearls -] 100 mg PO TID 09/15/18 Budesonide/Formeterol Fumarate [SYMBICORT 160/4.5mcg -] 2 puff IH BID 09/15/18 Cyanocobalamin Vit B-12 Inj. [Vitamin B12 Injection -] 1,000 mcg IM MONTHLY Digoxin [Lanoxin] 62.5 mcg PO DAILY 09/15/18 Diltiazem [Cardizem -] 120 mg PO DAILY 09/15/18 Ferrous Sulfate 325 mg PO DAILY 09/15/18 Fludrocortisone Acetate 0.1 mg PO DAILY 09/15/18 Furosemide 1 tab PO DAILY 09/15/18 Loratadine [Claritin] 1 tab PO DAILY 09/15/18 Mirtazapine 7.5 mg PO HS 09/15/18 Omeprazole 20 mg PO DAILY 09/15/18 Oxymetazoline 0.05% Nasal Soln [Afrin -] 2 spray NS BID PRN 09/15/18 Prednisone [Deltasone] 60 mg PO DAILY #9 tablet 09/15/18 Simvastatin [Zocor -] 40 mg PO HS 09/15/18 Tramadol HCl [Ultram] 25 mg PO QID PRN 09/15/18 Rivaroxaban [Xarelto -] 20 mg PO DAILY@1800 #30 tablet 09/17/18 - Discharge Referral Referred to [facility] No
[2018-09-17 15:10] VITALS: BP 145/96; TEMP 98
--- NOTE | 2018-09-17 17:48 | PN ---
Teaching Attending Note Name of Resident: Eben Norton ATTENDING PHYSICIAN STATEMENT I saw and evaluated the patient. I reviewed the resident's note and discussed the case with the resident. I agree with the resident's findings and plan as documented. SUBJECTIVE: he states that he has improved significantly and is ready to be DCed home on his home dose of O2 OBJECTIVE: in no distress, talks in full sentences, no use of accessory muscles 4 hours after last treatment. CVS:S1S2 GooD air movement, mild end expiratory wheezing. ON 2l NS Abd; BS+ NT/ND Last Vital Signs Temp Pulse Resp BP Pulse Ox 98 F 88 20 145/96 97 09/17/18 10:00 09/17/18 10:02 09/17/18 10:00 09/17/18 10:00 09/17/18 10:00 CBCD WBC 11.5 K/mm3 (4.0-10.0) H 09/16/18 06:25 RBC 4.24 M/mm3 (4.00-5.60) 09/16/18 06:25 Hgb 11.5 GM/dL (11.7-16.9) L 09/16/18 06:25 Hct 37.0 % (35.4-49) 09/16/18 06:25 MCV 87.4 fl (80-96) 09/16/18 06:25 MCHC 30.9 g/dl (32.0-35.9) L 09/16/18 06:25 RDW 14.8 % (11.9-15.9) 09/16/18 06:25 Plt Count 164 K/MM3 (134-434) 09/16/18 06:25 MPV 9.7 fl (7.5-11.1) 09/16/18 06:25 ASSESSMENT AND PLAN: COPD exacerbation: close to his baseline and resdy t be DCed home on 2 more days of prednisone and F/U with his prosthetic aides teacher rest of the management per HS note
== END 2018-09-17 16:19 | disposition home or self-care (01) ==
LOC: JER 12:44 → INTOOBSV 18:55 → JERBED 18:55 → J6S 09-15 17:58
PROVIDERS: ADMIT Internal Medicine; ATTEND Internal Medicine
PROC: 3E033NZ Introduction of Analgesics, Hypnotics, Sedatives into Peripheral Vein, Percutaneous Approach (ICD-10-PCS; principal; 2018-09-14)
PROC: 3E0337Z Introduction of Electrolytic and Water Balance Substance into Peripheral Vein, Percutaneous Approach (ICD-10-PCS; 2018-09-14)
PROC: 3E033GC Introduction of Other Therapeutic Substance into Peripheral Vein, Percutaneous Approach (ICD-10-PCS; 2018-09-14)
PROC: 3E013GC Introduction of Other Therapeutic Substance into Subcutaneous Tissue, Percutaneous Approach (ICD-10-PCS; 2018-09-14)
PROC: 3E0F7GC Introduction of Other Therapeutic Substance into Respiratory Tract, Via Natural or Artificial Opening (ICD-10-PCS; 2018-09-14)
DX: J44.1 Chronic obstructive pulmonary disease with (acute) exacerbation (principal); I12.9 Hypertensive chronic kidney disease with stage 1 through stage 4 chronic kidney disease, or unspecified chronic kidney disease; N18.9 Chronic kidney disease, unspecified; I11.0 Hypertensive heart disease with heart failure; I50.9 Heart failure, unspecified; E78.5 Hyperlipidemia, unspecified; I48.91 Unspecified atrial fibrillation; Z86.73 Personal history of transient ischemic attack (TIA), and cerebral infarction without residual deficits; Z99.81 Dependence on supplemental oxygen; Z87.891 Personal history of nicotine dependence; Z79.01 Long term (current) use of anticoagulants
CPT/HCPCS: 36415; 71045-TC-FY; 71275-TC; 80048; 80053; 80162; 81003; 81015; 82550; 82553; 82803; 83690; 83735; 84100; 84484; 85025; 85027; 85379; 85610; 87086; 87804; 93005; 93010; 94640; 96361; 96365; 96372; 96375; 99283-25; G0378; J0131; J1644; J7030

== ENCOUNTER 2021-04-17 12:58 | Inpatient (IN) | payer OTHER ==
[~2021-04-17 12:58] MED LIST: VANCOMYCIN 1 GRAM (PRE-DOCKED) 1,000 MG/250 ML BAG IVPB ONE
[2021-04-17 13:34] LABS: BASO % 1.6 % (0-2.0); EOS % 1.1 % (0-4.5); HEMATOCRIT 36.6 % (35.4-49); HEMOGLOBIN 11.4 GM/dL (11.7-16.9); LYMPH % 16.1 % (8-40); MCH 28.6 pg (25.7-33.7); MEAN CELL VOLUME 92.3 fl (80-96); MEAN PLT VOLUME 9.7 fl (7.5-11.1); MONO % 8.5 % (3.8-10.2); NEUT % 72.7 % (42.8-82.8); PLATELET COUNT 125 K/MM3 (134-434); RBC 3.97 M/mm3 (4.00-5.60); RDW 13.5 % (11.9-15.9); WHITE BLOOD COUNT 4.7 K/mm3 (4.0-10.0)
[2021-04-17 13:42] LABS: VENOUS BASE EXCESS 18.4 mmol/L (-2-2); VENOUS PH 7.207 (7.310-7.410)
[2021-04-17] MEDS ORDERED: ALBUTEROL SO4 2.5/IPRATROPIUM 0.5 INH SOL 3 ML VIAL.NEB. NEB ONE ×2 (13:42→16:15)
[2021-04-17] MEDS ORDERED: MAGNESIUM 1GM/D5W - 1 GM/100 ML IVPB IVPB ONE (13:42)
[2021-04-17 13:43] LABS: INR 0.92 (0.83-1.09); PROTHROMBIN TIME (PATIENT) 11.3 SEC (9.7-13.0)
[2021-04-17 13:45] LABS: ACTIVATED PTT 32.6 SECONDS (25.2-36.5)
[2021-04-17] MEDS: ALBUTEROL SO4 2.5/IPRATROPIUM 0.5 INH SOL 3 ML VIAL.NEB. NEB SCH ×3 (13:52→14:59)
[2021-04-17 13:53] LABS: CHLORIDE 80 mmol/L (98-107); SODIUM 125 mmol/L (136-145)
[2021-04-17 13:56] LABS: ALBUMIN 3.5 g/dl (3.4-5.0); BLOOD UREA NITROGEN 20.3 mg/dL (7-18); CALCIUM 9.7 mg/dL (8.5-10.1); CO2 44 mmol/L (21-32); GLUCOSE,RANDOM 127 mg/dL (74-106)
[2021-04-17 13:59] LABS: CREATININE 0.8 mg/dL (0.55-1.3); SGOT/AST 32 U/L (15-37); SGPT/ALT 17 U/L (13-61)
[2021-04-17 14:01] LABS: BILIRUBIN,TOTAL 0.7 mg/dL (0.2-1); TOT PROT 6.4 g/dl (6.4-8.2)
[2021-04-17 14:02] LABS: ALK PHOS 66 U/L (45-117)
[2021-04-17 14:14] LABS: ANION GAP 2 MMOL/L (8-16)
[2021-04-17] MEDS ORDERED: PIPERACILLIN/TAZOB 3.375 GM 3.375 GM in DEXTROSE 5%-WATER - 50 ML IVPB ONE (14:25)
[2021-04-17] MEDS ORDERED: VANCOMYCIN 1 GM in D5W (PRE-DOCKED) 1,000 MG/250 ML IVPB ONE (14:25)
[2021-04-17 14:36] LABS: ARTERIAL BLD GAS O2 SATURATION 99.7 mmHg (95-98); ARTERIAL BLOOD GAS BASE EXCESS 8.6 mmol/L (-2-2); ARTERIAL BLOOD GAS PO2 345.1 mmHg (80-100); ARTERIAL BLOOD GAS pH 7.263 (7.350-7.450)
[2021-04-17 14:37] LABS: ALLENS TEST POSITIVE
[2021-04-17] MEDS ORDERED: NOREPINEPHRINE BITARTRATE 4 MG/4 ML ML IV ONE (14:40)
[2021-04-17] MEDS ORDERED: NOREPINEPHRINE BITARTRATE 8,000 MCG/500 ML BAG IVPB SCH (14:45)
[2021-04-17] MEDS ORDERED: VANCOMYCIN 1 GRAM (PRE-DOCKED) 1,000 MG/250 ML BAG IVPB ONE (15:00)
[2021-04-17] MEDS ORDERED: PIPERACILLIN/TAZOB 3.375 GM 3.375 GM/50 ML BAG IVPB ONE (15:01)
[2021-04-17] MEDS ORDERED: AZITHROMYCIN IVPB 500 MG in DEXTROSE 5%-WATER - 250 ML IVPB ONE (15:13)
[2021-04-17] MEDS ORDERED: methylPREDNISolone NA SUCC 125 MG/2 ML VIAL IVPB ONE (15:13)
[2021-04-17] MEDS ORDERED: AZITHROMYCIN IVPB 500 MG/250 ML BAG IVPB ONE (15:15)
[2021-04-17] MEDS ORDERED: methylPREDNISolone NA SUCC 125 MG/2 ML VIAL ONE (15:15)
[2021-04-17 16:36] LABS: ARTERIAL BLD GAS O2 SATURATION 43.4 mmHg (95-98); ARTERIAL BLOOD GAS BASE EXCESS 3.8 mmol/L (-2-2); ARTERIAL BLOOD GAS pH 7.206 (7.350-7.450)
[2021-04-17 16:40] LABS: ARTERIAL BLOOD GAS PO2 30.4 mmHg (80-100)
[2021-04-17 17:02] LABS: BLOOD UREA NITROGEN 16.5 mg/dL (7-18)
[2021-04-17 17:06] LABS: CREATININE 0.4 mg/dL (0.55-1.3)
[2021-04-17 17:10] LABS: N-TERMINAL BNP 1110.7 pg/ml (5-125)
[2021-04-17 18:14] VITALS: TEMP 97.9; BMI 14.4
[2021-04-17] MEDS ORDERED: LORazepam 2 MG/ML SDV VIAL ONE (20:43)
[2021-04-17] MEDS ORDERED: RAPID SEQUENCE INTUBATION KIT NR ONE (20:48)
[2021-04-17] MEDS ORDERED: PHENYLEPHRINE HCL 10 MG/1 ML SINGLE DOSE VIAL ONE (20:51)
[2021-04-17] MEDS ORDERED: VASOPRESSIN 20 UNITS/ML VIAL IV ONE (21:00)
[2021-04-17] MEDS ORDERED: PIPERACILLIN/TAZOB 3.375 GM 3.375 GM in DEXTROSE 5%-WATER - 50 ML IVPB SCH (21:00)
[2021-04-17] MEDS ORDERED: HEPARIN NA (PORCINE) 5,000 UNITS/ML 1ML VIAL SQ SCH ×2 (22:00)
[2021-04-17] MEDS ORDERED: MUPIROCIN 2% TOPICAL OINTMENT FOR DECOLONIZATION NS SCH (22:00)
[2021-04-17] MEDS ORDERED: CHLORHEXIDINE GLUCONATE 4% CLEANSER FOR DECOLONIZATION TP SCH (22:00)
[2021-04-17 22:38] VITALS: BP 82/56; PULSE 86
[2021-04-18] MEDS ORDERED: VANCOMYCIN 1,000 MG in DEXTROSE 5%-WATER - 250 ML IVPB SCH (10:00)
[2021-04-18] MEDS ORDERED: AZITHROMYCIN IVPB 500 MG/250 ML BAG IVPB SCH (10:00)
[2021-04-18] MEDS ORDERED: PIPERACILLIN/TAZOB 3.375 GM 3.375 GM in DEXTROSE 5%-WATER - 50 ML IVPB SCH (15:00)
[2021-04-18] MEDS ORDERED: VANCOMYCIN 1 GRAM (PRE-DOCKED) 1,000 MG/250 ML BAG IVPB SCH (15:00)
== END 2021-04-17 23:00 | disposition expired | DRG 208 ==
LOC: JER 12:58 → JERBED 15:19 → JICU 17:19
PROVIDERS: ADMIT Internal Medicine; ATTEND Internal Medicine
PROC: 05HM33Z Insertion of Infusion Device into Right Internal Jugular Vein, Percutaneous Approach (ICD-10-PCS; principal; 2021-04-17)
PROC: 5A1935Z Respiratory Ventilation, Less than 24 Consecutive Hours (ICD-10-PCS; 2021-04-17)
PROC: 0CHY7BZ Insertion of Airway into Mouth and Throat, Via Natural or Artificial Opening (ICD-10-PCS; 2021-04-17)
DX: U07.1 COVID-19 (principal); J96.01 Acute respiratory failure with hypoxia; J96.02 Acute respiratory failure with hypercapnia; J44.1 Chronic obstructive pulmonary disease with (acute) exacerbation; E87.1 Hypo-osmolality and hyponatremia; I13.0 Hypertensive heart and chronic kidney disease with heart failure and stage 1 through stage 4 chronic kidney disease, or unspecified chronic kidney disease; I95.9 Hypotension, unspecified; I48.91 Unspecified atrial fibrillation; E78.5 Hyperlipidemia, unspecified; N18.9 Chronic kidney disease, unspecified; I50.9 Heart failure, unspecified; I46.9 Cardiac arrest, cause unspecified; R57.1 Hypovolemic shock
CPT/HCPCS: 36415; 36600; 71045-TC-FY; 80048; 80053; 82803; 83605; 83880; 84484; 85025; 85610; 85730; 87040; 87804; 93005; 93010; 94002; 99291; 99292; C9803; U0003; U0005